=== PATIENT | male | born 1995 | race Caucasian/White ===

== ENCOUNTER 2021-03-07 14:41 | Emergency (ER) | payer SELFPAY ==
[2021-03-07] MEDS ORDERED: ONDANSETRON 4 MG/2 ML VIAL ONE (15:15)
[2021-03-07] MEDS ORDERED: MORPHINE 4 MG/ML SYR ONE (15:15)
[2021-03-07] MEDS ORDERED: CEFAZOLIN/SWI 1gm 1 GM/10 ML SYR ONE (15:15)
[2021-03-07] MEDS ORDERED: TETANUS & DIPHTHERIA TOX,ADULT 0.5 ML VIAL ONE (15:24)
[2021-03-07] MEDS ORDERED: MEPERIDINE HCL 50 MG/ML ONE (16:04)
--- NOTE | 2021-03-07 16:12 | ER ---
Nurse's Notes [facility] Name: Adrian Cartagena Jr Age: 25 yrs Sex: Male : 1995 Arrival Date: 03/07/2021 Time: 14:46 Bed 4 Private MD: Diagnosis: Burn of second degree of forearm-Left, wrist Presentation: 03/07 14:48 Chief complaint: Patient states: Burn to L hand/wrist that occurred just prior to ss arrival. 2nd degree burn noted. Coronavirus screen: Client denies travel out of the [place] in the last 14 days. Ebola Screen: Patient denies exposure to infectious person. Patient denies travel to an Ebola-affected area in the 21 days before illness onset. Initial Sepsis Screen: Does the patient meet any 2 criteria? No. Patient's initial sepsis screen is negative. Does the patient have a suspected source of infection? No. Patient's initial sepsis screen is negative. Risk Assessment: Do you want to hurt yourself or someone else? Patient reports no desire to harm self or others. Onset of symptoms was March 07, 2021. 14:48 Method Of Arrival: Ambulatory ss 14:48 Acuity: LANE 2 ss Triage Assessment: 14:50 Injury Description: Patient sustained second-degree burn(s) to left hand. aa5 Historical: - Allergies: 14:48 No Known Allergies; ss - Home Meds: 14:48 None [Active]; ss - PMHx: 14:48 None; ss - PSHx: 14:48 None; ss - Immunization history:: Last tetanus immunization: unknown. - Social history:: Smoking status: Patient denies any tobacco usage or history of. - Family history:: not pertinent. - Hospitalizations: : No recent hospitalization is reported. Screenin:50 Abuse screen: Denies threats or abuse. Nutritional screening: No deficits noted. aa5 Tuberculosis screening: No symptoms or risk factors identified. Fall Risk None identified. Assessment: 14:50 General: Appears uncomfortable, Behavior is calm, cooperative. Pain: Complains of pain aa5 in left hand Pain currently is 10 out of 10 on a pain scale. Quality of pain is described as burning, throbbing, Is continuous. Neuro: Level of Consciousness is awake, alert, obeys commands, Oriented to person, place, time, situation. Cardiovascular: Heart tones S1 S2 present Rhythm is regular. Respiratory: Airway is patent Respiratory effort is even, unlabored, Respiratory pattern is regular, symmetrical. GI: No signs and/or symptoms were reported involving the gastrointestinal system. : No signs and/or symptoms were reported regarding the genitourinary system. EENT: No signs and/or symptoms were reported regarding the EENT system. Derm: Skin is pink, warm \T\ dry. 2nd degree noted to left hand extending to left wrist. Musculoskeletal: Range of motion: intact in all extremities. 15:15 Reassessment: Patient is alert, oriented x 3, equal unlabored respirations, skin aa5 warm/dry/pink. Patient states symptoms have not improved. MD was notified of unchanged pain level. . 16:55 Reassessment: Patient is alert, oriented x 3, equal unlabored respirations, skin aa5 warm/dry/pink. Vital Signs: 14:48 BP 138 / 85; Pulse 87; Resp 18; Pulse Ox 100% on R/A; Weight 74.84 kg; Height 5 ft. 6 ss in. (167.64 cm); Pain 10/10; 14:48 Body Mass Index 26.63 (74.84 kg, 167.64 cm) ss ED Course: 14:46 Patient arrived in ED. ss 14:48 Arm band placed on right wrist. ss 14:50 Ivan Conley PA is PHCP. cp 14:50 Talat Ho MD is Attending Physician. cp 14:50 Patient has correct armband on for positive identification. Bed in low position. Call aa5 light in reach. Side rails up X 1. Adult w/ patient. 14:53 Triage completed. ss 14:55 Inserted saline lock: 20 gauge in right hand, using aseptic technique. aa5 15:11 Landy Hooper, RN is Primary Nurse. aa5 16:10 Alexy Muro MD is Referral Physician. rn 16:30 Wound care: to Burn located on left hand was cleaned with with Hibiclens and saline , aa5 Excess peeled skin removed by Dr. Ho prior to cleaning wound. Dressed with thick layer of Neosporin, Xeroform, and Kerlix per Dr. Ho VO. Patient tolerated well. 16:55 No provider procedures requiring assistance completed. IV discontinued, intact, aa5 bleeding controlled, No redness/swelling at site. Pressure dressing applied. 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 Lot #: [id number]. } Route: IM; Site: right deltoid; 15:50 Follow up: Response: No adverse reaction aa5 15:50 Drug: Demerol (meperidine) 50 mg Route: IVP; Site: right hand; hb 16:10 Follow up: Response: No adverse reaction; Pain is decreased aa5 Outcome: 16:11 Discharge ordered by . rn 16:55 Discharged to home ambulatory, with significant other. aa5 16:55 Condition: stable 16:55 Discharge instructions given to patient, Instructed on discharge instructions, follow up and referral plans. medication usage, Demonstrated understanding of instructions, follow-up care, medications, Prescriptions given X 2. 16:58 Patient left the ED. aa5 Signatures: Talat Ho MD MD rn Calderon, Audri, RN RN aa5 Meryl Velásquez RN RN ss Page, Corey, PA PA cp Baxter, Heather, RN RN
--- NOTE | 2021-03-07 16:12 | EDPHYS ---
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 rn Onset: The symptoms/episode began/occurred just prior to arrival. Burn type and severity: 2nd degree: approximately 3% total body surface area of second degree injury. Associated signs and symptoms:. The patient has not experienced similar symptoms in the past. The patient has not recently seen a physician. Reports at work, accidentally spilled hot grease on arm, left arm, is right handed. Top layer of skin has peeled, no blister formation. . Historical: - Allergies: 14:48 No Known Allergies; ss - Home Meds: 14:48 None [Active]; ss - PMHx: 14:48 None; ss - PSHx: 14:48 None; ss - Immunization history:: Last tetanus immunization: unknown. - Social history:: Smoking status: Patient denies any tobacco usage or history of. - Family history:: not pertinent. - Hospitalizations: : No recent hospitalization is reported. ROS: 15:01 Constitutional: Negative for fever, chills, and weight loss, Neck: Negative for injury, rn pain, and swelling, Cardiovascular: Negative for chest pain, palpitations, and edema, Respiratory: Negative for shortness of breath, cough, wheezing, and pleuritic chest pain, Abdomen/GI: Negative for abdominal pain, nausea, vomiting, diarrhea, and constipation, Back: Negative for injury and pain, MS/Extremity: + burn to left arm Skin: + skin burn Neuro: Negative for headache, weakness, and seizure. Exam: 15:01 Constitutional: This is a well developed, well nourished patient who is awake, alert, rn and in no acute distress. Ambulatory to room without difficulty. MS/ Extremity: Pulses equal, no cyanosis. Neurovascular intact. Full, normal range of motion. + partial thickness burn to left dorsal/medial wrist region, approx 3% TBSA, not entirely circumferential, + small amount of serous drainage, crossed over left radial head, but not over other joints of hand/fingers. Vital Signs: 14:48 BP 138 / 85; Pulse 87; Resp 18; Pulse Ox 100% on R/A; Weight 74.84 kg; Height 5 ft. 6 ss in. (167.64 cm); Pain 10/10; 14:48 Body Mass Index 26.63 (74.84 kg, 167.64 cm) ss MDM: 14:50 Patient medically screened. rn 16:09 Differential diagnosis: 2nd degree miller. Data reviewed: vital signs, nurses notes, and rn as a result, I will discharge patient. Counseling: I had a detailed discussion with the patient and/or guardian regarding: the historical points, exam findings, and any diagnostic results supporting the discharge/admit diagnosis, the need for outpatient follow up, to return to the emergency department if symptoms worsen or persist or if there are any questions or concerns that arise at home. Response to treatment: the patient's symptoms have markedly improved after treatment, and as a result, I will discharge patient. Special discussion: I discussed with the patient/guardian in detail that at this point there is no indication for admission to the hospital. It is understood, however, that if the symptoms persist or worsen the patient needs to return immediately for re-evaluation. 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 Lot #: [id number]. } Route: IM; Site: right deltoid; 15:50 Follow up: Response: No adverse reaction aa5 15:50 Drug: Demerol (meperidine) 50 mg Route: IVP; Site: right hand; hb 16:10 Follow up: Response: No adverse reaction; Pain is decreased aa5 Disposition Summary: 03/07/21 16:11 Discharge Ordered Location: Home rn Problem: new rn Symptoms: have improved rn Condition: Stable rn Diagnosis - Burn of second degree of forearm - Left, wrist rn Followup: rn - With: Alexy Muro MD - When: 5 - 6 days - Reason: Wound Recheck, Recheck today's complaints, Re-evaluation by your physician Discharge Instructions: - Discharge Summary Sheet rn - Burn Care, Adult rn - Second-Degree Burn, Adult rn - Form - Return To Work ss Forms: - Medication Reconciliation Form rn - Thank You Letter rn - Antibiotic sports management internship - Prescription Opioid Use rn - Work release form ss Prescriptions: - Augmentin 875-125 mg Oral Tablet - take 1 tablet by ORAL route every 12 hours for 10 days; 20 tablet; Refills: 0, rn Product Selection Permitted - Tramadol 50 mg Oral Tablet - take 1 tablet by ORAL route every 8 hours as needed; 15 tablet; Refills: 0, rn Product Selection Permitted Signatures: Talat Ho MD MD rn Calderon, Audri RN RN aa Meryl Velásquez RN RN Becca Lerner, GURMEET RN
[2021-03-07 17:07] VITALS: BP 138/85; O2SAT 100
== END 2021-03-07 16:58 | disposition home or self-care (01) ==
LOC: ER 14:41
DX: T22.212A Burn of second degree of left forearm, initial encounter (principal); T31.0 Burns involving less than 10% of body surface; X10.2XXA Contact with fats and cooking oils, initial encounter; Y92.89 Other specified places as the place of occurrence of the external cause; Z23 Encounter for immunization
CPT/HCPCS: 90471; 90714; 96374; 96375; 99283; J0690; J2175; J2405

== ENCOUNTER 2021-12-11 09:18 | Emergency (ER) | payer BC, SELFPAY ==
[2021-12-11] MEDS ORDERED: LIDOCAINE 1% W/EPI 1:100,000 MDV 50 ML VIAL ONE (10:16)
--- NOTE | 2021-12-11 10:46 | ER ---
Nurse's Notes [facility] Name: Adrian Cartagena Jr Age: 26 yrs Sex: Male : 1995 Arrival Date: 12/11/2021 Time: 09:23 Bed 24 Private MD: Diagnosis: Cutaneous abscess, furuncle and carbuncle of other sites-left buttock Presentation: 12/11 09:48 Chief complaint: Patient states: has a cyst under his left arm and one on his backside iw that is hurting him. Coronavirus screen: At this time, the client does not indicate any symptoms associated with coronavirus-19. Ebola Screen: Patient negative for fever greater than or equal to 101.5 degrees Fahrenheit, and additional compatible Ebola Virus Disease symptoms Patient denies exposure to infectious person. Patient denies travel to an Ebola-affected area in the 21 days before illness onset. No symptoms or risks identified at this time. Initial Sepsis Screen: Does the patient meet any 2 criteria? No. Patient's initial sepsis screen is negative. Does the patient have a suspected source of infection? No. Patient's initial sepsis screen is negative. Risk Assessment: Do you want to hurt yourself or someone else? Patient reports no desire to harm self or others. Onset of symptoms was September 2021. 09:48 Method Of Arrival: Ambulatory iw 09:48 Acuity: LANE 4 iw Historical: - Allergies: 09:49 No Known Allergies; iw - Home Meds: 09:49 None [Active]; iw - PMHx: 09:49 None; iw - PSHx: 09:49 None; iw - Immunization history:: Client reports having NOT received the Covid vaccine. - Social history:: Smoking status: Patient denies any tobacco usage or history of. Screenin:53 Abuse screen: Denies threats or abuse. Denies injuries from another. Nutritional ab2 screening: No deficits noted. Tuberculosis screening: No symptoms or risk factors identified. Fall Risk None identified. Assessment: 10:52 General: Appears in no apparent distress. uncomfortable, Behavior is calm, cooperative, ab2 appropriate for age. Pain: Complains of pain in left gluteus rosaura Pain currently is 7 out of 10 on a pain scale. Neuro: Level of Consciousness is awake, alert, obeys commands, Oriented to person, place, time, situation, Appropriate for age. Cardiovascular: No deficits noted. Heart tones S1 S2 present Patient's skin is warm and dry. Respiratory: Airway is patent Respiratory effort is even, unlabored, Respiratory pattern is regular, symmetrical. GI: No deficits noted. No signs and/or symptoms were reported involving the gastrointestinal system. : No deficits noted. No signs and/or symptoms were reported regarding the genitourinary system. Derm: Abscess located on left gluteus rosaura. Vital Signs: 09:48 BP 128 / 71; Pulse 83; Resp 16; Temp 98.1; Pulse Ox 100% on R/A; iw 10:54 BP 117 / 77; Pulse 74; Resp 17; Pulse Ox 99% on R/A; ab2 ED Course: 09:23 Patient arrived in ED. ds1 09:33 Ivan Conley PA is PHCP. cp 09:33 Talat Ho MD is Attending Physician. cp 09:49 Triage completed. iw 09:50 Arm band placed on. iw 10:09 Jossue Pedraza is Primary Nurse. ab2 10:44 Wilfrido Littlejohn MD is Referral Physician. cp 10:53 Assist provider with I \T\ D: of an abscess on Set up I\T\D tray. Performed by Ivan Conley ab 2 PA Patient tolerated well. Patient did not have IV access during this emergency room visit. 10:54 Patient has correct armband on for positive identification. Placed in gown. Bed in low ab2 position. Call light in reach. Side rails up X2. Adult w/ patient. Administered Medications: 10:51 Drug: Lidocaine-Epinephrine -1%: (1:100,000) 10 ml {Note: ivan veronica used for i\T\d.} ab2 Volume: 20 ml; Route: Infiltration; Outcome: 10:45 Discharge ordered by MD. cp 11:15 Discharged to home ambulatory, with family. ab2 11:15 Condition: good 11:15 Discharge instructions given to patient, family, Instructed on discharge instructions, follow up and referral plans. medication usage, Demonstrated understanding of instructions, follow-up care, medications, Prescriptions given X 1. 11:15 Patient left the ED. ab2 Signatures: Mandi Armstrong ds1 Lori Feldman RN RN iw Ivan Conley PA PA Alexandre Gillisis ab2
--- NOTE | 2021-12-11 10:46 | EDPHYS ---
Physician Documentation [facility] Name: Adrian Cartagena Jr Age: 26 yrs Sex: Male : 1995 Arrival Date: 12/11/2021 Time: 09:23 Bed 24 Private MD: ED Physician Talat Ho HPI: 12/11 10:10 This 26 yrs old Male presents to ER via Ambulatory with complaints of Abscess, cp Cyst. 10:10 The patient presents with an abscess of the buttocks. cp 10:10 Description: tense, painful. Patient also requesting examination of cyst in left arm cp axilla that has been present for months. Denies drainage, denies pain. Historical: - Allergies: 09:49 No Known Allergies; iw - Home Meds: 09:49 None [Active]; iw - PMHx: 09:49 None; iw - PSHx: 09:49 None; iw - Immunization history:: Client reports having NOT received the Covid vaccine. - Social history:: Smoking status: Patient denies any tobacco usage or history of. ROS: 10:15 Constitutional: Negative for body aches, chills, fever, poor PO intake. cp 10:15 Eyes: Negative for injury, pain, redness, and discharge. cp 10:15 ENT: Negative for ear pain, sore throat, difficulty swallowing, difficulty handling secretions. 10:15 Cardiovascular: Negative for chest pain, palpitations. 10:15 Respiratory: Negative for cough, shortness of breath, wheezing. 10:15 Abdomen/GI: Negative for abdominal pain, nausea, vomiting, and diarrhea. 10:15 All other systems are negative. Exam: 10:20 Constitutional: The patient appears in no acute distress, alert, awake, comfortable, cp non-toxic, well developed, well nourished. 10:20 Head/Face: Normocephalic, atraumatic. cp 10:20 Cardiovascular: Rate: normal. 10:20 Respiratory: the patient does not display signs of respiratory distress, Respirations: normal, no use of accessory muscles, no retractions, labored breathing, is not present. 10:20 Skin: abscess, that is small, of the left buttock, superficial epidermal cyst noted left arm axilla with no erythema, non-tender. Vital Signs: 09:48 BP 128 / 71; Pulse 83; Resp 16; Temp 98.1; Pulse Ox 100% on R/A; iw 10:54 BP 117 / 77; Pulse 74; Resp 17; Pulse Ox 99% on R/A; ab2 Procedures: 10:50 I \T\ D: Incision and drainage was performed for an abscess of the left buttock Prepped cp with Betadine, Anesthetized with 2 ml's 1% Lidocaine w/ Epi. Drained small amount purulent fluid. bloody fluid. Dressing: guaze the patient tolerated the procedure well, area pierced with 18 gauge needle. MDM: 10:05 Patient medically screened. cp 10:30 Differential diagnosis: abscess, cellulitis, cyst. cp 10:45 Data reviewed: vital signs, nurses notes. cp 12/11 10:07 Order name: I\T\D Setup; Complete Time: 10:15 cp Administered Medications: 10:51 Drug: Lidocaine-Epinephrine -1%: (1:100,000) 10 ml {Note: ivan veronica used for i\T\d.} ab2 Volume: 20 ml; Route: Infiltration; Disposition Summary: 12/11/21 10:45 Discharge Ordered Location: Home cp Problem: new cp Symptoms: have improved cp Condition: Stable cp Diagnosis - Cutaneous abscess, furuncle and carbuncle of other sites - left buttock cp Followup: cp - With: Wilfrido Littlejohn MD - When: 2 - 3 days - Reason: Recheck today's complaints Discharge Instructions: - Discharge Summary Sheet cp - Skin Abscess, Slxm-vs-[id number] cp Forms: - Medication Reconciliation Form cp - Work release form bd - Thank You Letter cp - Antibiotic Education cp - Prescription Opioid Use cp Prescriptions: - Bactrim DS 800-160 mg Oral Tablet - take 1 tablet by ORAL route every 12 hours for 7 days; 14 tablet; Refills: 0, cp Product Selection Permitted Signatures: Lori Feldman RN RN iw Ivan Conley PA PA cp Bleininger, Alexis ab2
[2021-12-11 11:22] VITALS: TEMP 98.1
[2021-12-11 11:23] VITALS: BP 117/77; O2SAT 99
== END 2021-12-11 11:15 | disposition home or self-care (01) ==
LOC: ER 09:18
PROC: 0H98XZZ Drainage of Buttock Skin, External Approach (ICD-10-PCS; principal; 2021-12-11)
DX: L02.31 Cutaneous abscess of buttock (principal)
CPT/HCPCS: 99283